=== PATIENT | female | born 1990 | race African-American/Black ===

== ENCOUNTER 2023-10-15 13:45 | Emergency (ER) | payer SELFPAY ==
[~2023-10-15] VITALS: Ht 165.1 cm; Wt 70.0 kg
[2023-10-15 13:51] VITALS: BP 122/77; PULSE 102; RESP 18; TEMP 98.5; O2SAT 99
== END 2023-10-15 15:00 | disposition left against medical advice (07) ==
LOC: ER 14:20
DX: R41.82 Altered mental status, unspecified (principal); Z53.21 Procedure and treatment not carried out due to patient leaving prior to being seen by health care provider